=== PATIENT | female | born 2000 | race Caucasian/White ===

== ENCOUNTER 2020-05-30 13:40 | Emergency (ER) | payer BC, OTHER ==
--- NOTE | 2020-05-30 14:01 | EDM.PDOC ---
ED HPI GENERAL MEDICAL PROBLEM - General Chief Complaint: Upper Extremity Injury/Pain Stated Complaint: Sharp pain in her left shoulder while stretching Time Seen by Provider: 05/30/20 13:50 Source of Information: Reports: Patient History Limitations: Reports: No Limitations - History of Present Illness INITIAL COMMENTS - FREE TEXT/NARRATIVE: Patient states while stretching couple hours ago she felt a sharp pop/pain that was about a 7 out of 10 that has been ongoing chronically for the last 7 to 8 years intermittently she states now the pain is about a 3 out of 10 feels much better. She denies any trauma or injury She also has ongoing midsternal/epigastric pain that she states is about a 2 out of 10 it is been going on since sixth grade she has seen numerous providers with numerous work-ups all of been negative states it is bothering her little bit today but it does every day no new changes she has been eating drinking normally Duration: Hour(s): Quality: Reports: Ache, Stabbing Severity: Mild Improves with: Reports: Other (time) Associated Symptoms: Reports: No Other Symptoms Review of Systems - Review of Systems Review Of Systems: See Below Constitutional: Reports: No Symptoms Eyes: Reports: No Symptoms Ears: Reports: No Symptoms Nose: Reports: No Symptoms Mouth/Throat: Reports: No Symptoms Respiratory: Reports: No Symptoms Cardiovascular: Reports: No Symptoms GI/Abdominal: Reports: Abdominal Pain. Denies: Bloody Stool, Constipation, Decreased Appetite, Diarrhea, Hematemesis, Nausea, Vomiting Genitourinary: Reports: No Symptoms Musculoskeletal: Reports: Shoulder Pain Skin: Reports: No Symptoms Neurological: Reports: No Symptoms Psychiatric: Reports: No Symptoms ED EXAM, GENERAL - Physical Exam Exam: See Below Exam Limited By: Other (Upon walking in the room patient is text messaging with her left arm no acute distress noted) General Appearance: Alert, WD/WN, No Apparent Distress Nose: Normal Inspection Throat/Mouth: Normal Inspection, Normal Lips, Normal Teeth, Normal Gums, Normal Oropharynx, Normal Voice, No Airway Compromise Head: Atraumatic, Normocephalic Neck: Normal Inspection, Supple, Non-Tender, Full Range of Motion Respiratory/Chest: No Respiratory Distress, Lungs Clear, Normal Breath Sounds, No Accessory Muscle Use, Chest Non-Tender Cardiovascular: Normal Peripheral Pulses, Regular Rate, Rhythm, No Edema, No Gallop, No JVD, No Murmur, No Rub GI/Abdominal: Normal Bowel Sounds, Soft, Non-Tender, No Organomegaly, No Distention, No Abnormal Bruit, No Mass, Pelvis Stable. No: Guarding, Rigid, Rebound, Tender Extremities: Normal Inspection, Normal Range of Motion, Non-Tender, No Pedal Edema, Normal Capillary Refill, Other (Exam to the left shoulder patient has full range of motion normal pronation supination Apley's scratch maneuver negative drop arm 5 of 5 strength she is neurovascularly intact strong radius and ulna equal soft touch sensation) Neurological: Alert, Oriented, CN II-XII Intact, Normal Cognition, Normal Gait, No Motor/Sensory Deficits Psychiatric: Normal Affect, Normal Mood Skin Exam: Warm, Dry, Intact, Normal Color, No Rash Departure - Departure Time of Disposition: 14:05 Disposition: Home, Self-Care 01 Condition: Good Clinical Impression: Shoulder pain, Abdominal pain, chronic, epigastric - Discharge Information *PRESCRIPTION DRUG MONITORING PROGRAM REVIEWED*: Not Applicable *COPY OF PRESCRIPTION DRUG MONITORING REPORT IN PATIENT RICARDO: Not Applicable Instructions: Shoulder Pain, [id number] Forms: ED Department Discharge Additional Instructions: Follow-up with your primary doctor for this chronic ongoing problem you may take [id number] Tylenol and ibuprofen as directed follow directions on the bottle Return to the emergency room if anything changes or gets worse - Problem List & Annotations (1) Abdominal pain, chronic, epigastric SNOMED Code(s): 44306158 Code(s): R10.13 - EPIGASTRIC PAIN; G89.29 - OTHER CHRONIC PAIN Status: Acute (2) Shoulder pain SNOMED Code(s): 45098000 Code(s): M25.519 - PAIN IN UNSPECIFIED SHOULDER Status: Acute
== END 2020-05-30 14:10 | disposition home or self-care (01) ==
LOC: VM.ED 13:40
DX: M25.512 Pain in left shoulder (principal); R10.13 Epigastric pain; G89.29 Other chronic pain
CPT/HCPCS: 99283; 99284